=== PATIENT | male | born 1930 | race Caucasian/White ===

== ENCOUNTER 2017-08-03 10:37 | Emergency (ER) | payer OTHER ==
[~2017-08-03] VITALS: Ht 182.9 cm; Wt 81.7 kg
[~2017-08-03 10:37] MED LIST: ASPIRIN325 PO; CIPROFLOXACIN500 M1 PO; HTN; HTN MED; LEVOTHROID; LEVOTHYROXINE 0.15MG PO; LUMIGAN2.5 M1 OP; NORVASC5 MG PO; PROSCAR 5MG TABL5 MG PO; PROSTATE; PROSTATE 2.4 C1 EACH; PROTONIX 20 MG20 M1 PO; THYROID; XALATAN2.5 ML
[2017-08-03 11:21] LABS: ABSOLUTE BASOPHILS 0.1 thou/uL (0.0-0.2); ABSOLUTE EOSINOPHILS 0.3 thou/uL (0.0-0.7); ABSOLUTE MONOCYTES 0.6 thou/uL (0.0-1.2); ABSOLUTE NEUTROPHILS 4.5 thou/uL (1.6-8.1); HEMATOCRIT 36.7 % (42.0-52.0); HEMOGLOBIN 12.2 gm/dL (14.0-18.0); LYMPHOCYTES 15.5 %; MCH 31.2 pg (26.0-34.0); MCHC 33.4 g/dL (28.0-37.0); MCV 93.7 fL (80.0-100.0); MONOCYTES 9.2 %; MPV 7.4 fl. (7.2-11.1); NUCLEATED RBCS 0 /100WBC; PLATELET COUNT* 285 thou/uL (150-400); POLYS 70.3 %; RBC 3.91 mil/uL (4.50-6.00); RDW-CV 14.5 % (10.5-14.5); WBC 6.4 thou/uL (4.0-11.0)
[2017-08-03 11:30] LABS: ANION GAP 10 mmol/L (7-16); BUN 20 mg/dL (7-18); CALCIUM 8.3 mg/dL (8.5-10.1); CHLORIDE 106 mmol/L (98-107); CO2 23 mmol/L (21-32); CREATININE 1.7 mg/dL (0.6-1.3); GLUCOSE 122 mg/dL (70-99); POTASSIUM 4.1 mmol/L (3.5-5.1); SODIUM 139 mmol/L (136-145)
[2017-08-03 11:36] LABS: ALBUMIN 3.3 g/dL (3.4-5.0); ALKALINE PHOSPHATASE 92 U/L (46-116); LIPASE 164 U/L (73-393); SGOT 18 U/L (15-37); SGPT 27 U/L (30-65); TOTAL BILIRUBIN 0.5 mg/dL (<0.1-1.0); TOTAL PROTEIN 6.7 g/dL (6.4-8.2); TROPONIN-I LEVEL <0.06 ng/mL (<0.06)
[2017-08-03 14:34] LABS: URINE BILIRUBIN NEGATIVE (Negative); URINE BLOOD TRACE (Negative); URINE CLARITY CLEAR; URINE COLOR YELLOW; URINE GLUCOSE-RANDOM NEGATIVE (Negative); URINE KETONES NEGATIVE (Negative); URINE LEUKOCYTES-REFLEX NEGATIVE (Negative); URINE NITRITE-REFLEX NEGATIVE (Negative); URINE PROTEIN NEGATIVE (Negative); URINE SPECIFIC GRAVITY <= 1.005 (1.005-1.030); URINE UROBILINOGEN 0.2 E.U./dl (0.2-1.0)
--- NOTE | 2017-08-03 14:35 | EKG ---
[place] [address] ELECTROCARDIOGRAM REPORT Name: Gamal GORMAN Room: [facility]#: [id number] Admission: 08/03/17 Attend Phys: Discharge: Date of : 30 Report #: [id number] THIS REPORT FOR: //name// [facility] ED Test Date: 2017-08-03 Test Time: 11:22:07 Pat Name: Gamal GORMAN Department: Room: Gender: Chief Program Officer: Wagner SHELTON : 1930 Requested By: Jojo Sotelo Order Number: [id number] MD: Romulo Mason Measurements Intervals [place] Rate: 71 P: 69 WV: 154 QRS: 10 QRSD: 88 T: 24 QT: 427 QTc: 465 Interpretive Statements Sinus rhythm Abnormal R-wave progression, early transition Compared to ECG 01/05/2017 10:35:08 No significant changes Electronically Signed On 08-03-2017 14:35:40 CDT by Romulo Mason [email or web address] <ELECTRONICALLY SIGNED> By: Romulo Mason MD, [facility] 08/03/17 1435 1122 112 Romulo Mason MD, FACC /EPI
--- NOTE | 2017-08-03 14:43 | 2DMMODE ---
[place] [address] 2 D/M-MODE ECHOCARDIOGRAM Name: Gamal GORMAN Room: [facility]#: [id number] Admission: 08/03/17 Attend Phys: Discharge: Date of : 30 Date of Service: 08/03/17 1443 Report #: [id number] THIS REPORT FOR: //name// APPROVED REPORT Study performed: 08/03/2017 13:44:58 EXAM: Comprehensive 2D, Doppler, and color-flow Echocardiogram Patient Location: In-Patient Room #: ER Status: routine BSA: 2.04 HR: 81 bpm BP: 163/88 mmHg Rhythm: NSR Other Information Study Quality: Good Indications Murmur Syncope 2D Dimensions LVEF(%): 65.76 (>50%) IVSd: 12.24 (7-11mm) LVOT Diam: 20.93 (18-24mm) LVDd: 49.37 mm PWd: 10.38 (7-11mm) Ascending Ao: 30.15 (22-36mm) LVDs: 31.46 (25-40mm) Aortic Root: 25.10 mm Cobian's LVEF: 65.76 % Volumes Left Atrial Volume (Systole) LA ESV Index: 27.30 mL/m2 Aortic Valve AoV Peak Roderick.: 1.78 m/s AO Peak Gr.: 12.74 mmHg LVOT Max P.79 mmHg AO Mean Gr.: 7.09 mmHg LVOT Mean P.81 mmHg LVOT Max V: 0.97 m/s AO V2 VTI: 37.64 cm LVOT Mean V: 0.61 m/s JOSÉ (VTI): 2.04 cm2 LVOT V1 VTI: 22.35 cm [place] [address] 2 D/M-MODE ECHOCARDIOGRAM Name: Gamal GORMAN Room: [facility]#: [id number] Admission: 08/03/17 Attend Phys: Discharge: Date of : 30 Date of Service: 08/03/17 1443 Report #: [id number] E/A Ratio: 0.86 MV Decel. Time: 213.41 ms MV E Max Roderick.: 0.93 m/s MV PHT: 61.89 ms MVA (PHT): 3.55 cm2 TDI E/Lateral E': 10.33 E/Medial E': 9.30 Medial E' Roderick.: 0.10 m/s Lateral E' Roderick.: 0.09 m/s Pulmonary Valve PV Peak Roderick.: 1.18 m/s PV Peak Gr.: 5.58 mmHg Tricuspid Valve TR Peak Gr.: 31.06 mmHg RVSP: 36.00 mmHg Left Ventricle The left ventricle is normal size. There is normal LV segmental wall motion. There is normal left ventricular wall thickness. Left ventricular systolic function is normal. The left ventricular ejection fraction is within the normal range. LVEF is 60-65%. Grade I - abnormal relaxation pattern. Right Ventricle The right ventricle is normal size. The right ventricular systolic function is normal. Atria The left atrium size is normal. The right atrium size is normal. Aortic Valve Mild aortic valve sclerosis. No aortic regurgitation is present. There is no aortic valvular stenosis. Mitral Valve There is mitral annular calcification. Trace mitral regurgitation. No evidence of mitral valve stenosis. Tricuspid Valve The tricuspid valve is normal in structure. Mild tricuspid regurgitation. The RVSP is 35-40 mmHg. Pulmonic Valve The pulmonary valve is normal in structure. There is [place] [address] 2 D/M-MODE ECHOCARDIOGRAM Name: Gamal GORMAN Room: [facility]#: [id number] Admission: 08/03/17 Attend Phys: Discharge: Date of : 30 Date of Service: 08/03/17 1443 Report #: [id number] valvular regurgitation. Great Vessels The aortic root is normal in size. IVC is normal in size and collapses with >50% inspiration Pericardium There is no pericardial effusion. <Conclusion> The left ventricle is normal size. There is normal left ventricular wall thickness. Left ventricular systolic function is normal. The left ventricular ejection fraction is within the normal range. LVEF is 60-65%. Grade I - abnormal relaxation pattern. The right ventricle is normal size. The left atrium size is normal. Mild aortic valve sclerosis. No aortic regurgitation is present. There is no aortic valvular stenosis. There is mitral annular calcification. Trace mitral regurgitation. No evidence of mitral valve stenosis. The tricuspid valve is normal in structure. Mild tricuspid regurgitation. The RVSP is 35-40 mmHg. IVC is normal in size and collapses with >50% inspiration There is no pericardial effusion. There is normal LV segmental wall motion. <ELECTRONICALLY SIGNED> By: Romulo Mason MD, FACC 08/03/17 1443 1443 1443 Romulo Mason MD, FACC /INF
[2017-08-03 16:00] VITALS: BP 163/88
== END 2017-08-03 16:03 | disposition home or self-care (01) ==
LOC: M.ERS 10:37
PROVIDERS: Physician Assistant
DX: I95.1 Orthostatic hypotension (principal); J45.909 Unspecified asthma, uncomplicated; I10 Essential (primary) hypertension

== ENCOUNTER 2018-02-07 15:39 | Inpatient (IN) | payer OTHER ==
[~2018-02-07] VITALS: Ht 182.9 cm; Wt 80.3 kg
--- NOTE | ~2018-02-07 | PROC ---
[address] [address] PROCEDURE REPORT Name: Gamal GORMAN Room: [address] IN .R.#: [id number] Admission: 02/07/18 Attend Phys: Silvano Purcell MD Discharge: 02/10/18 Date of : 30 Report #: [id number] THIS REPORT FOR: //name// For GI report, please see the Provation report In Perceptive 7. By: 1622Medical Records Staff LIT /BELEN
[2018-02-07 15:50] VITALS: BP 110/53
[2018-02-07 16:21] LABS: ABSOLUTE BASOPHILS 0.1 thou/uL (0.0-0.2); ABSOLUTE EOSINOPHILS 0.3 thou/uL (0.0-0.7); ABSOLUTE LYMPHOCYTES 1.7 thou/uL (0.8-5.3); ABSOLUTE MONOCYTES 0.7 thou/uL (0.0-1.2); BASOPHILS 1.3 %; HEMATOCRIT 26.1 % (42.0-52.0); HEMOGLOBIN 8.7 gm/dL (14.0-18.0); LYMPHOCYTES 24.7 %; MCH 31.3 pg (26.0-34.0); MCHC 33.2 g/dL (28.0-37.0); MCV 94.1 fL (80.0-100.0); NUCLEATED RBCS 0 /100WBC; PLATELET COUNT* 300 thou/uL (150-400); RBC 2.77 mil/uL (4.50-6.00); RDW-CV 14.5 % (10.5-14.5); WBC 6.8 thou/uL (4.0-11.0)
[2018-02-07 16:28] LABS: CALCIUM 8.3 mg/dL (8.5-10.1); CREATININE 2.1 mg/dL (0.6-1.3); POTASSIUM 4.3 mmol/L (3.5-5.1)
[2018-02-07 16:31] LABS: APTT 25.1 Seconds (25.0-31.3); PROTIME 10.7 Seconds (9.20-11.50)
[2018-02-07 16:32] LABS: ALBUMIN 2.9 g/dL (3.4-5.0); TOTAL BILIRUBIN 0.4 mg/dL (<0.1-1.0); TOTAL PROTEIN 5.9 g/dL (6.4-8.2)
[2018-02-07] MEDS ORDERED: ASPIRIN325 PO (18:17)
[2018-02-07 20:41] VITALS: BP 95/39
[2018-02-07 21:00] VITALS: BP 111/56
[2018-02-07 22:00] VITALS: BP 104/50
[2018-02-08] VITALS (16 sets, daily range): BP systolic 97–143; BP diastolic 44–70
[2018-02-08 01:00] LABS: ABSOLUTE BASOPHILS 0.1 thou/uL (0.0-0.2); ABSOLUTE EOSINOPHILS 0.2 thou/uL (0.0-0.7); ABSOLUTE LYMPHOCYTES 1.4 thou/uL (0.8-5.3); ABSOLUTE MONOCYTES 0.5 thou/uL (0.0-1.2); ABSOLUTE NEUTROPHILS 3.2 thou/uL (1.6-8.1); EOSINOPHILS 3.3 %; LYMPHOCYTES 26.2 %; MCH 31.1 pg (26.0-34.0); MCHC 32.9 g/dL (28.0-37.0); MCV 94.4 fL (80.0-100.0); MPV 7.6 fl. (7.2-11.1); NUCLEATED RBCS 0 /100WBC; PLATELET COUNT* 246 thou/uL (150-400); POLYS 59.5 %; RBC 2.01 mil/uL (4.50-6.00); RDW-CV 14.6 % (10.5-14.5); WBC 5.4 thou/uL (4.0-11.0)
[2018-02-08 01:15] LABS: HEMOGLOBIN 6.3 gm/dL (14.0-18.0)
[2018-02-08 01:16] LABS: CALCIUM 7.6 mg/dL (8.5-10.1); CREATININE 1.9 mg/dL (0.6-1.3); POTASSIUM 4.1 mmol/L (3.5-5.1)
[2018-02-08 08:06] LABS: HEMATOCRIT 23.6 % (42.0-52.0); HEMOGLOBIN 7.8 gm/dL (14.0-18.0)
[2018-02-08 16:11] LABS: HEMATOCRIT 27.3 % (42.0-52.0); HEMOGLOBIN 9.1 gm/dL (14.0-18.0)
[2018-02-09] VITALS: BP 110/52
[2018-02-09 00:41] LABS: ABSOLUTE BASOPHILS 0.1 thou/uL (0.0-0.2); ABSOLUTE EOSINOPHILS 0.5 thou/uL (0.0-0.7); ABSOLUTE LYMPHOCYTES 1.7 thou/uL (0.8-5.3); ABSOLUTE MONOCYTES 0.9 thou/uL (0.0-1.2); ABSOLUTE NEUTROPHILS 4.7 thou/uL (1.6-8.1); BASOPHILS 1.3 %; HEMATOCRIT 25.9 % (42.0-52.0); HEMOGLOBIN 8.7 gm/dL (14.0-18.0); LYMPHOCYTES 21.9 %; MCH 31.2 pg (26.0-34.0); MCHC 33.6 g/dL (28.0-37.0); MCV 92.9 fL (80.0-100.0); NUCLEATED RBCS 0 /100WBC; PLATELET COUNT* 263 thou/uL (150-400); POLYS 59.8 %; RBC 2.79 mil/uL (4.50-6.00); RDW-CV 15.5 % (10.5-14.5); WBC 7.8 thou/uL (4.0-11.0)
[2018-02-09 01:08] LABS: ALBUMIN 2.8 g/dL (3.4-5.0); CALCIUM 8.1 mg/dL (8.5-10.1); CREATININE 1.9 mg/dL (0.6-1.3); POTASSIUM 3.7 mmol/L (3.5-5.1); TOTAL BILIRUBIN 0.4 mg/dL (<0.1-1.0); TOTAL PROTEIN 5.6 g/dL (6.4-8.2)
[2018-02-09 05:30] VITALS: BP 116/58
[2018-02-09 08:06] LABS: HEMATOCRIT 23.8 % (42.0-52.0)
--- NOTE | 2018-02-09 11:10 | EKG ---
[place] [address] ELECTROCARDIOGRAM REPORT Name: Gamal GORMAN Room: [address] ADM IN M.R.#: [id number] Admission: 02/07/18 Attend Phys: Silvano Purcell MD Discharge: Date of : 30 Report #: [id number] THIS REPORT FOR: //name// [facility] ED Test Date: 2018-02-07 Test Time: 16:11:09 Pat Name: Gamal GORMAN Department: Room: [facility] Gender: Subsurface Augmentee Operator: Wagner MONAHAN : 1930 Requested By: Marisela Pelaez Order Number: [id number] MD: Brayan Garcia Measurements Intervals [place] Rate: 80 P: 87 NE: 146 QRS: 11 QRSD: 88 T: 42 QT: 402 QTc: 464 Interpretive Statements Sinus rhythm Atrial premature complex Abnormal R-wave progression, early transition Compared to ECG 08/03/2017 11:22:07 Atrial premature complex(es) now present Electronically Signed On 02-09-2018 11:10:21 PERSONAL CAREGIVER by Brayan Garcia [email or web address] <ELECTRONICALLY SIGNED> By: Brayan Garcia MD, FACC 02/09/18 1110 1611 1611 Brayan Garcia MD, FAC /EPI
[2018-02-09 16:00] VITALS: BP 138/95
[2018-02-09 16:01] LABS: HEMATOCRIT 26.4 % (42.0-52.0); HEMOGLOBIN 8.9 gm/dL (14.0-18.0)
[2018-02-09 21:56] VITALS: BP 117/62
[2018-02-10 04:59] LABS: ABSOLUTE BASOPHILS 0.1 thou/uL (0.0-0.2); ABSOLUTE EOSINOPHILS 0.3 thou/uL (0.0-0.7); ABSOLUTE LYMPHOCYTES 1.4 thou/uL (0.8-5.3); ABSOLUTE MONOCYTES 0.8 thou/uL (0.0-1.2); ABSOLUTE NEUTROPHILS 3.6 thou/uL (1.6-8.1); EOSINOPHILS 5.3 %; HEMATOCRIT 23.2 % (42.0-52.0); HEMOGLOBIN 7.7 gm/dL (14.0-18.0); LYMPHOCYTES 23.1 %; MCH 30.9 pg (26.0-34.0); MCHC 33.2 g/dL (28.0-37.0); MONOCYTES 12.7 %; MPV 8.6 fl. (7.2-11.1); NUCLEATED RBCS 0 /100WBC; PLATELET COUNT* 216 thou/uL (150-400); POLYS 57.9 %; RDW-CV 14.8 % (10.5-14.5); WBC 6.2 thou/uL (4.0-11.0)
[2018-02-10 05:12] LABS: PREALBUMIN 19.1 mg/dL (18.0-35.7)
[2018-02-10 05:15] LABS: ALBUMIN 2.3 g/dL (3.4-5.0); CALCIUM 7.9 mg/dL (8.5-10.1); CREATININE 1.6 mg/dL (0.6-1.3); POTASSIUM 3.9 mmol/L (3.5-5.1); TOTAL BILIRUBIN 0.3 mg/dL (<0.1-1.0); TOTAL PROTEIN 4.9 g/dL (6.4-8.2)
[2018-02-10 07:30] VITALS: BP 141/77
[2018-02-10 10:41] VITALS: BP 117/62
--- NOTE | 2018-02-22 17:35 | CON ---
[address] [address] CONSULTATION Name: Gamal GORMAN Room: [address] IN M.R.#: [id number] Admission: 02/07/18 Attend Phys: Silvano Purcell MD Discharge: 02/10/18 Date of : 30 Report #: [id number] THIS REPORT FOR: //name// CC: Silvano Avilez DATE OF SERVICE: 02/08/2018 REFERRING PHYSICIAN: Silvano Purcell MD REASON FOR CONSULTATION: Rectal bleeding. IMPRESSION: 1. Hematochezia with hemodynamic compromise - suspect diverticular bleed. 2. Anemia, which appears to be posthemorrhagic. 3. Chronic kidney disease, stage 3. RECOMMENDATIONS: We will proceed with bowel preparation today in anticipation of colonoscopy tomorrow. I have discussed these recommendations with the patient as well and he is agreeable to the same. HISTORY OF PRESENT ILLNESS: The patient is a pleasant 88-year-old white male who presents to emergency room with complaints of rather severe overt hematochezia with associated lightheadedness and dizziness. He had previously been having some loose stools off and on for the last week or so, but then started having bloody stools today. He is color blind, so he was not sure if they were bloody or not. He was having lightheadedness and dizziness associated with the same. He is not having history of any type problems like this in the past. He does have a history of previous polyps that have been removed in the past. His last examination was done by Dr. Ross Leonard about 5 years ago. He denies any complaints of abdominal pain associated with the same or anything to suggest this might be an upper GI tract bleed. He was admitted to hospital and underwent a tagged red blood cell scan at my request last night and this was negative. He presents now for further evaluation. The patient is currently hemodynamically stable and doing well. He wished to go home as soon as possible. ALLERGIES: None. MEDICATIONS: Levothyroxine, Proscar, amlodipine, and Lumigan eyedrops. PAST MEDICAL HISTORY: Hypertension, hypothyroidism. He has some problems with glaucoma, history of asthma and he has had [place] [address] CONSULTATION Name: Gamal GORMAN Room: [address]#: [id number] Admission: 02/07/18 Attend Phys: Silvano Purcell MD Discharge: 02/10/18 Date of : 30 Report #: [id number] SOCIAL HISTORY: The patient is . He does not smoke. Drinks about 3-4 beers a week. FAMILY HISTORY: Negative. PHYSICAL EXAMINATION: GENERAL: Pleasant 88-year-old gentleman who is awake and alert. CARDIOPULMONARY: Revealed a regular rate and rhythm. LUNGS: Clear. ABDOMEN: Soft and not tender. No rebound or guarding noted. LABORATORY DATA: From admission revealed a white count 6.8, hemoglobin 8.7, platelet count 300,000, MCV is 94.1, RDW 14.5. Sodium 141, potassium 4.3, chloride 109, bicarbonate 22, BUN is 42, creatinine 12.1. GFR is only 30. Total bilirubin 0.4, alkaline phosphatase 85, AST 14, ALT 22. Albumin is 2.9. Overnight, the patient's hemoglobin dropped down to 6.3 and he received 1 unit packed red blood cells. His hemoglobin is now up to 7.8 today. His BUN and creatinine are improved to 45 and 1.9 from admission. DISCUSSION: At the present time, the patient has had what appeared to be a lower GI bleed. We will proceed with bowel preparation today and endoscopic evaluation of his lower GI tract tomorrow. Discussed with the patient as well and he is agreeable to the same. <ELECTRONICALLY SIGNED> By: Shaun Snow DO 02/22/18 1735 1530 [id number] Snow DO /nt
== END 2018-02-10 11:10 | disposition home or self-care (01) | DRG 377 ==
LOC: M.ERS 15:39 → M.TBA-ER 17:26 → M.ICU 17:26 → M.3W 02-09 17:19
PROVIDERS: Nurse Practitioner Family; ADMIT Internal Medicine
PROC: 30233N1 Transfusion of Nonautologous Red Blood Cells into Peripheral Vein, Percutaneous Approach (ICD-10-PCS; principal; 2018-02-08)
PROC: 0DJD8ZZ Inspection of Lower Intestinal Tract, Via Natural or Artificial Opening Endoscopic (ICD-10-PCS; 2018-02-09)
DX: K57.31 Diverticulosis of large intestine without perforation or abscess with bleeding (principal); R57.8 Other shock; N17.1 Acute kidney failure with acute cortical necrosis; D62 Acute posthemorrhagic anemia; J45.909 Unspecified asthma, uncomplicated; H40.9 Unspecified glaucoma; I95.9 Hypotension, unspecified; I12.9 Hypertensive chronic kidney disease with stage 1 through stage 4 chronic kidney disease, or unspecified chronic kidney disease; N18.3 Chronic kidney disease, stage 3 (moderate); K64.9 Unspecified hemorrhoids; K57.30 Diverticulosis of large intestine without perforation or abscess without bleeding; Z79.899 Other long term (current) drug therapy

== ENCOUNTER 2018-06-11 10:55 | Observation (INO) | payer OTHER ==
[~2018-06-11] VITALS: Ht 182.9 cm; Wt 83.5 kg
[2018-06-11 11:02] VITALS: BP 127/83
[2018-06-11 11:22] LABS: ABSOLUTE BASOPHILS 0.1 thou/uL (0.0-0.2); ABSOLUTE EOSINOPHILS 0.3 thou/uL (0.0-0.7); ABSOLUTE LYMPHOCYTES 1.2 thou/uL (0.8-5.3); ABSOLUTE MONOCYTES 0.6 thou/uL (0.0-1.2); BASOPHILS 1.1 %; EOSINOPHILS 3.9 %; HEMATOCRIT 44.3 % (42.0-52.0); HEMOGLOBIN 14.5 gm/dL (14.0-18.0); LYMPHOCYTES 17.1 %; MCH 29.9 pg (26.0-34.0); MCHC 32.7 g/dL (28.0-37.0); MCV 91.7 fL (80.0-100.0); MONOCYTES 8.7 %; MPV 8.2 fl. (7.2-11.1); NUCLEATED RBCS 0 /100WBC; PLATELET COUNT* 341 thou/uL (150-400); POLYS 69.2 %; RBC 4.84 mil/uL (4.50-6.00); RDW-CV 15.8 % (10.5-14.5); WBC 7.2 thou/uL (4.0-11.0)
[2018-06-11 11:31] LABS: PROTIME 10.4 Seconds (9.20-11.50)
[2018-06-11 11:39] LABS: ALBUMIN 3.8 g/dL (3.4-5.0); ALKALINE PHOSPHATASE 151 U/L (46-116); ANION GAP 11 mmol/L (7-16); BUN 29 mg/dL (7-18); CALCIUM 9.1 mg/dL (8.5-10.1); CHLORIDE 103 mmol/L (98-107); CO2 25 mmol/L (21-32); CREATININE 2.1 mg/dL (0.6-1.3); GLUCOSE 104 mg/dL (70-99); POTASSIUM 4.3 mmol/L (3.5-5.1); SGOT 13 U/L (15-37); SGPT 21 U/L (30-65); SODIUM 139 mmol/L (136-145); TOTAL BILIRUBIN 0.5 mg/dL (<0.1-1.0); TROPONIN-I LEVEL <0.06 ng/mL (<0.06)
[2018-06-11 12:41] LABS: BE -4.7 mmol/L (-2 to +3); PCO2 29.5 mmHg (35.0-45.0); PO2 93.7 mmHg (75.0-100.0); pH 7.415 (7.340-7.450)
[2018-06-11 14:08] VITALS: BP 110/67
[2018-06-11 14:57] VITALS: BP 121/40
[2018-06-11 16:00] VITALS: BP 161/81
--- NOTE | 2018-06-11 16:03 | 2DMMODE ---
[place] [address] 2 D/M-MODE ECHOCARDIOGRAM Name: Gamal GORMAN Room: [address] IN [facility]#: [id number] Admission: 06/11/18 Attend Phys: Sotero Mar, Discharge: Date of : 30 Date of Service: 06/11/18 1602 Report #: [id number] THIS REPORT FOR: //name// APPROVED REPORT Study performed: 06/11/2018 14:52:34 EXAM: Comprehensive 2D, Doppler, and color-flow Echocardiogram Patient Location: In-Patient Room #: 210 Status: routine BSA: 2.05 HR: 80 bpm BP: 110/67 mmHg Rhythm: NSR Other Information Study Quality: Good Indications CVA/TIA Echo Enhancing Agent Indication: Rule out Shunt Agent(s) / Amount(s) Used: Agitated Saline 10 cc 2D Dimensions IVSd: 10.71 (7-11mm) LVOT Diam: 20.39 (18-24mm) LVDd: 49.43 mm PWd: 10.89 (7-11mm) Ascending Ao: 30.03 (22-36mm) LVDs: 25.33 (25-40mm) Aortic Root: 31.68 mm Volumes Left Atrial Volume (Systole) LA ESV Index: 30.50 mL/m2 Aortic Valve AoV Peak Roderick.: 1.81 m/s AO Peak Gr.: 13.16 mmHg LVOT Max P.73 mmHg AO Mean Gr.: 7.53 mmHg LVOT Mean P.03 mmHg LVOT Max V: 0.97 m/s AO V2 VTI: 33.21 cm LVOT Mean V: 0.67 m/s JOSÉ (VTI): 1.91 cm2 LVOT V1 VTI: 19.44 [place] [address] 2 D/M-MODE ECHOCARDIOGRAM Name: Gamal GORMAN Room: [address] [place] .R.#: [id number] Admission: 06/11/18 Attend Phys: Sotero Mar, Discharge: Date of : 30 Date of Service: 06/11/18 1602 Report #: [id number] Mitral Valve E/A Ratio: 1.15 MV Decel. Time: 219.63 ms MV E Max Roderick.: 0.89 m/s MV PHT: 63.69 ms MVA (PHT): 3.45 cm2 TDI E/Lateral E': 11.13 E/Medial E': 11.13 Medial E' Roderick.: 0.08 m/s Lateral E' Roderick.: 0.08 m/s Pulmonary Valve PV Peak Roderick.: 1.19 m/s PV Peak Gr.: 5.68 mmHg Tricuspid Valve RAP Estimate: 5.00 mmHg TR Peak Gr.: 22.80 mmHg RVSP: 27.00 mmHg PA Pressure: 27.00 mmHg Left Ventricle The left ventricle is normal size. There is normal LV segmental wall motion. There is normal left ventricular wall thickness. Left ventricular systolic function is normal. The left ventricular ejection fraction is within the normal range. LVEF is 55-60%. The left ventricular diastolic function is normal. Right Ventricle The right ventricle is normal size. The right ventricular systolic function is normal. Atria Left atrium is mildly dilated. Interatrial septum is intact without evidence of ASD or PFO. The right atrium size is normal. Aortic Valve Mild aortic valve sclerosis. No aortic regurgitation is present. Mild aortic stenosis. Mitral Valve There is mitral annular calcification. Trace mitral regurgitation. No evidence of mitral valve stenosis. Tricuspid Valve The tricuspid valve is normal in structure. Trace tricuspid regurgitation. [place] [address] 2 D/M-MODE ECHOCARDIOGRAM Name: Gamal GORMAN Room: [address] [place] [facility]#: [id number] Admission: 06/11/18 Attend Phys: Sotero Mar, Discharge: Date of : 30 Date of Service: 06/11/18 1602 Report #: [id number] Pulmonic Valve The pulmonary valve is normal in structure. There is no pulmonic valvular regurgitation. Great Vessels The aortic root is normal in size. IVC is not well visualized. Pericardium There is no pericardial effusion. <Conclusion> LVEF is 55-60%. Left atrium is mildly dilated. Mild aortic stenosis. Interatrial septum is intact without evidence of ASD or PFO. <ELECTRONICALLY SIGNED> By: Kleber Sofia MD, FACC 06/11/18 1602 160 160 Kleber Sofia MD, FACC /INF
[2018-06-11 20:00] VITALS: BP 136/72
[2018-06-12] VITALS: BP 131/58
[2018-06-12 04:00] VITALS: BP 112/63
[2018-06-12 04:56] LABS: HEMATOCRIT 35.9 % (42.0-52.0); MCH 30.2 pg (26.0-34.0); MCHC 33.1 g/dL (28.0-37.0); MCV 91.4 fL (80.0-100.0); MPV 8.2 fl. (7.2-11.1); RBC 3.93 mil/uL (4.50-6.00); WBC 5.6 thou/uL (4.0-11.0)
[2018-06-12 05:11] LABS: HEMOGLOBIN 11.9 gm/dL (14.0-18.0)
[2018-06-12 05:26] LABS: CHOLESTEROL 178 mg/dL (<200); HDL CHOLESTEROL 51 mg/dL (>40); LDL CHOLESTEROL 114 mg/dL (<100); TC:HDL 3.5 Ratio (Not establshd); TRIGLYCERIDE 68 mg/dL (<150); VLDL 14 mg/dL (<40)
[2018-06-12 05:34] LABS: SERUM ASSESSMENT Clear
[2018-06-12 05:42] LABS: CALCIUM 8.6 mg/dL (8.5-10.1); MAGNESIUM 2.2 mg/dL (1.8-2.4); POTASSIUM 4.4 mmol/L (3.5-5.1)
[2018-06-12 08:00] VITALS: BP 150/76
[2018-06-12] MEDS ORDERED: ATORVASTATIN CA40 MG PO (09:23)
[2018-06-12] MEDS ORDERED: ADULT LOW DOSE81 MG PO (09:23)
[2018-06-12] MEDS ORDERED: ELIQUIS5 MG PO (09:23)
[2018-06-12 13:01] VITALS: BP 150/76
[2018-06-12] MEDS ORDERED: XARELTO15 MG PO (13:48)
[2018-06-12 17:13] VITALS: BP 150/76
--- NOTE | 2018-06-12 17:36 | EKG ---
[place] [address] ELECTROCARDIOGRAM REPORT Name: Gamal GORMAN Room: [address] M.R.#: [id number] Admission: 06/11/18 Attend Phys: Sotero Mar MD Discharge: Date of : 30 Report #: [id number] THIS REPORT FOR: //name// [facility] ED Test Date: 2018-06-11 Test Time: 11:10:22 Pat Name: Gamal GORMAN Department: Room: [facility] Gender: Manager Sales Training: Wagner MONAHAN : 1930 Requested By: Luis Maguire Order Number: [id number] MD: Kwesi Gallegos Measurements Intervals [place] Rate: 90 P: ID: QRS: 0 QRSD: 89 T: 9 QT: 373 QTc: 457 Interpretive Statements Atrial fibrillation Compared to ECG 02/07/2018 16:11:09 Sinus rhythm no longer present Atrial premature complex(es) no longer present Electronically Signed On 06-12-2018 17:35:56 CDT by Kwesi Gallegos [email or web address] <ELECTRONICALLY SIGNED> By: Kwesi Gallegos MD, FAC 06/12/18 1735 1110 1110 Kwesi Gallegos MD, [facility] /EPI
--- NOTE | 2018-06-13 08:22 | CON ---
[address] [address] CONSULTATION Name: Gamal GORMAN Room: [address] Aristides [facility]#: [id number] Admission: 06/11/18 Attend Phys: Sotero Mar MD Discharge: 06/12/18 Date of : 30 Report #: [id number] THIS REPORT FOR: //name// CC: Dr. Luz Morgan CARDIOLOGY CONSULTATION INDICATION: Paroxysmal atrial fibrillation. HISTORY OF PRESENT ILLNESS: The patient is a very pleasant and fairly healthy 88-year-old gentleman who was admitted to the hospital yesterday after friends noticed him in a somewhat confused state, walking around the parking lot of the restaurant they were at. He went home, but continued to be a confused, with some slurred speech. At that time, EMS was notified and he was brought to the hospital. He was not having any hemiplegia or numbness. He denied any visual field deficits. Since admission to the hospital, he has been neurologically stable. Initial EKG showed atrial fibrillation with a controlled ventricular response rate. The patient is now in normal sinus rhythm. He denies any chest pain or shortness of breath. He is not having any lightheadedness, dizziness or syncope. PAST MEDICAL HISTORY: 1. Hypertension. 2. Hypothyroidism. 3. Glaucoma. 4. BPH. 5. Asthma. 6. Previous polypectomy. 7. Knee surgery. 8. Remote history of GI bleeding. SOCIAL HISTORY: The patient is a lifelong nonsmoker, drinks alcohol occasionally. FAMILY HISTORY: Noncontributory. ALLERGIES: None documented. CURRENT MEDICATIONS: Amlodipine 5 mg daily, Lumigan eyedrops as directed, finasteride 5 mg daily and levothyroxine 150 mcg daily. REVIEW OF SYSTEMS: Positive for hypothyroidism, reading glasses and decreased hearing, [place] [address] CONSULTATION Name: Gamal GORMAN Room: [address]#: [id number] Admission: 06/11/18 Attend Phys: Sotero Mar MD Discharge: 06/12/18 Date of : 30 Report #: [id number] PHYSICAL EXAMINATION: VITAL SIGNS: Stable. Blood pressure 150/76, pulse 65 and regular. GENERAL: This is a pleasant elderly gentleman in no distress. Mood and affect appropriate. HEENT: The patient is wearing glasses. Extraocular muscles intact. Mucous membranes are moist. NECK: Examination of the neck shows no jugular venous distention. There are no carotid bruits. CHEST: Examination of the chest reveals clear lung velazquez, without wheezes or rales. CARDIAC EXAMINATION: Reveals a regular rhythm with normal S1 and S2. I do not appreciate gallop or murmur. ABDOMEN: Examination of the abdomen reveals normal bowel sounds. The abdomen is soft and nontender. EXTREMITIES: Examination of the extremities show no edema. Peripheral pulses are palpable. SKIN: Warm and dry. LABORATORY DATA: Initial 12-lead EKG showed atrial fibrillation with controlled ventricular response rate. There were no significant ST or T-wave abnormalities noted. Telemetry had subsequently shown normal sinus rhythm throughout the remainder of his hospitalization here. IMPRESSION AND RECOMMENDATIONS. 1. Paroxysmal atrial fibrillation. CHADs score 4. Due to hypertension, age and transient ischemic attack symptoms. We will start Xarelto 15 mg daily. We plan to see the patient back in the office in 1 month. We will obtain an echocardiogram as an outpatient. 2. Hypertension, adequately controlled on amlodipine. Continue as outlined above. 3. Hypothyroidism. Continue replacement therapy. 4. Hypercoagulability due to atrial fibrillation. We will start Xarelto 15 mg daily. The patient appears stable for discharge from a cardiac standpoint. <ELECTRONICALLY SIGNED> By: Kwesi Gallegos MD, FACC 06/13/18 0822 1302 1426Kwesi Gallegos MD, FACC /nt
== END 2018-06-12 17:00 | disposition home or self-care (01) ==
LOC: M.ERS 10:55 → M.2W 12:17 → M.TBA-ER 12:17 → M.2W 12:17
PROVIDERS: Emergency Medicine; ADMIT Internal Medicine
DX: G45.9 Transient cerebral ischemic attack, unspecified (principal); G93.40 Encephalopathy, unspecified; I12.9 Hypertensive chronic kidney disease with stage 1 through stage 4 chronic kidney disease, or unspecified chronic kidney disease; N18.3 Chronic kidney disease, stage 3 (moderate); E03.9 Hypothyroidism, unspecified; I48.0 Paroxysmal atrial fibrillation; J45.909 Unspecified asthma, uncomplicated; F03.90 Unspecified dementia, unspecified severity, without behavioral disturbance, psychotic disturbance, mood disturbance, and anxiety; I73.9 Peripheral vascular disease, unspecified; E78.5 Hyperlipidemia, unspecified; I35.0 Nonrheumatic aortic (valve) stenosis; R73.03 Prediabetes; Z98.890 Other specified postprocedural states